=== PATIENT | female | born 1930 | race Caucasian/White ===

== ENCOUNTER 2017-04-10 09:00 | Inpatient (IN) | payer MEDICARE ==
[2017-04-10 09:32] VITALS: BMI 29.1
--- NOTE | 2017-04-13 09:53 | HP ---
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 She underwent left total hip replac ement in July of this year with good results. She continues to have problems with her right hip andres pite rest, restriction of activities, lifestyle adjustments, and anti-inflammatory medications. Her pain is now interfering with day-to-day activities. PAST MEDICAL HISTORY: Please see the old chart. The patient has history of atherosclerotic cardiova scular disease, previous stent placement, aortic valve replacement, and atrial fibrillation. She has been on anticoagulation in the past. After cardioversion, she has only now on aspirin. She has bee n seen and cleared for surgery by Dr. Cody's office. CURRENT MEDICATIONS: Include, multivitamins, calcium, vitamin D, aspirin 81 mg, simvastatin, and met oprolol. ALLERGIES: She is allergic to BENADRYL and ZYRTEC. FAMILY HISTORY, SOCIAL HISTORY, AND REVIEW OF SYSTEMS: Otherwise unremarkable. PHYSICAL EXAMINATION: GENERAL: Reveals an elderly healthy white female, who appears to be younger than her stated age. HEENT: Unremarkable. NECK: Supple. CHEST: Clear. HEART: Regular rate and rhythm. ABDOMEN: Soft, nontender. PELVIC/RECTAL/BREAST: Exams are deferred. EXTREMITIES: Pertinent findings are related to the right hip. There is tenderness in the anterior r ight hip. There is decreased range of motion and groin pain with internal rotation of her right anta lgic gait. NEUROVASCULAR: Intact. LABORATORY AND X-RAY FINDINGS: X-rays of the right hip reveal severe degenerative arthritis with no joint space remaining. IMPRESSION: 1. Degenerative arthritis, right hip. 2. Status post left total hip replacement. 3. Hypertension. 4. Atherosclerotic cardiovascular disease. PLAN: Right total hip replacement. The nature of the surgery, length of recovery, and potential com plications such as infection, loss of motion, incomplete relief, neurovascular injury, thromboembolic phenomenon, leg length discrepancy, possible transfusion, and need for revision have been discussed in detail.
[2017-04-17] MEDS ORDERED: Tranexamic Acid 1,000 MG/100 ML BAG ONE ×2 (06:06→09:13)
[2017-04-17] MEDS ORDERED: CEFAZOLIN/Water 2 GM/20 ML SYRINGE ONE (06:06)
[2017-04-17] MEDS ORDERED: Vancomycin HCl 500 MG VIAL ONE (06:09)
[2017-04-17] MEDS ORDERED: Fentanyl 100 MCG/2 ML VIAL ONE (06:26)
[2017-04-17] MEDS ORDERED: Midazolam HCl 2 mg/2 ml Vial ONE (06:26)
[2017-04-17] MEDS ORDERED: Ropivacaine 0.5% HCl/PF (150 MG/30 ML VIAL) ONE (07:13)
[2017-04-17] MEDS ORDERED: Promethazine HCl 25 MG SUPP PR PRN (07:15)
[2017-04-17] MEDS ORDERED: Naloxone HCl 0.4 mg/ml Vial IV PRN (07:15)
[2017-04-17] MEDS ORDERED: Bupivacaine 0.25% 10 ML VIAL EPIDURAL PRN (07:15)
[2017-04-17] MEDS ORDERED: Naloxone HCl 0.4 mg/ml Vial IVP PRN (07:15)
[2017-04-17] MEDS ORDERED: traMADol HCl 50 MG TAB PO PRN ×4 (07:15→10:37)
[2017-04-17] MEDS ORDERED: Zolpidem Tartrate 5 MG TAB PO PRN ×2 (07:15→10:37)
[2017-04-17] MEDS ORDERED: Ondansetron HCl/PF 4 MG/2 ML Vial IVP PRN ×3 (07:15→10:37)
[2017-04-17] MEDS ORDERED: Promethazine HCl 25 MG/ML VIAL IM PRN ×2 (07:15→09:27)
[2017-04-17] MEDS ORDERED: Fentanyl/Bupivacaine 250 ML in Premix Bag 1 BAG EPIDURAL SCH (07:15)
[2017-04-17] MEDS ORDERED: Eucerin (Mineral Oil/Petrolatum,White) 30 gm Jar TOP PRN (07:15)
[2017-04-17] MEDS ORDERED: HYDROcodone/Acetaminophen 5/325 mg Tablet PO PRN (07:15)
[2017-04-17 08:18] LABS: Bilirubin Negative (Negative); Blood, Urine Moderate (Negative); Glucose, Urine (Dipstick) Negative (Negative); Ketone, Urine Negative (Negative); Nitrite Positive (Negative); Protein, Urine (Dipstick) 100 mg/dL (Neg-Trace); Urobilinogen 0.2 mg/dL (0.2-1.0)
[2017-04-17 08:23] LABS: Bacteria/HPF 4+ HPF (None Seen); Squamous Epithelial 0-3 HPF (0-3)
[2017-04-17 08:38] LABS: Hyaline Casts/LPF NONE SEEN LPF (0-3 Hyaline)
[2017-04-17] MEDS ORDERED: Tranexamic Acid 1,000 MG in Sodium Chloride 0.9% 100 ML IVPB SCH ×2 (09:15→10:37)
[2017-04-17] MEDS ORDERED: Promethazine HCl 25 MG/ML VIAL SLOW IVP PRN ×2 (09:27→10:37)
[2017-04-17] MEDS ORDERED: Fentanyl/Bupivacaine 250 ML EPIDURAL ONE (09:30)
--- NOTE | 2017-04-17 09:34 | OP ---
DATE OF PROCEDURE: 04/17/2017 SURGEON: Joseph Billy M.D. INTERNATIONAL RELATIONS PROFESSOR: Deshawn Palomo PA-C. ANESTHESIA: General plus epidural. PREOPERATIVE DIAGNOSIS: Degenerative arthritis, right hip. POSTOPERATIVE DIAGNOSIS: Degenerative arthritis, right hip. PROCEDURES: Right total hip replacement with uncemented Trident 54 mm PSL outer shell with X3 polyet hylene insert and uncemented Accolade femoral stem with #3 stem, 132 degree angle trunnion and 36 mm standard neck length metal head. NARRATIVE REPORT: After satisfactory anesthesia was induced in supine position, the patient was plac ed in lateral decubitus position and this position held with the hip position device. Sequential com pression device was used on the non-operative leg throughout the procedure. The patient was prepped and draped in the routine sterile fashion. The hip was approached through a lateral curvilinear inci derrell, centered over the greater trochanter and carried down to subcutaneous tissues and bleeding poin ts controlled with Bovie cautery. IT band and gluteal fascia were split in line with skin incision. Direct lateral approach to the hip joint was accomplished by dividing the anterior third of the glut eus medius minimus tendons with Bovie cautery and reflecting this as a single flap anteriorly and med ially along with the vastus lateralis. Anterior capsulectomy was performed. The hip dislocated ante riorly. There was marked degenerative arthritis of the hip with large areas of exposed bone. The fe moral neck was osteotomized with an oscillating saw using a trial prosthesis as a guide. The acetabu lum was exposed and cleaned of all soft tissue and debris and then reamed in sequence down to bleedin g subchondral bone to a total of 54 mm. It was felt that a 54 mm Trident PSL outer shell could be pl aced in a press fit fashion. The permanent component was then hammered into position. There was goo d fit and stability of the component. No significant osteophytes. The permanent X3 polyethylene agata er was then snapped into position and the proximal femur exposed. It was opened with a box osteotome and then rasped in sequence to accept a #3 Accolade femoral rasp. Trial reduction with 132 degree a ngle trunnion and the standard 36 mm standard neck length femoral head gave appropriate size, fit, an d stability. The hip was again dislocated anteriorly. The trial components were removed. The perma nent #3 Accolade femoral stem with 132 degree angle trunnion was then hammered in position. There wa s again good fit and stability of the component. The permanent 36 mm standard neck length metal head was then placed on the trunnion and the hip again reduced and found to be stable. The wound was photocopy operator iously irrigated with pulsatile lavage. The abductors were repaired with interrupted #2 Vicryl. The IT band and gluteal fascia were closed with interrupted #2 Vicryl and a running #2 Quill. Subcutane ous tissues were closed with running 0 Quill suture and the skin closed with running subcuticular 3-0 Monoderm and SurgiSeal skin adhesive. Sterile dressing was applied and the patient turned to the madrigal pine position and a pillow placed between her legs. Sequential compression device was applied to the operated leg and she was awakened and taken to recovery room in stable condition. There were no deuce arent intraoperative complications. The estimated blood loss was 200 mL.
[2017-04-17] MEDS ORDERED: Metoprolol Tartrate 25 MG TAB PO SCH ×2 (10:37→11:30)
[2017-04-17] MEDS ORDERED: Multivitamin W/ Minerals 1 TAB PO SCH ×2 (10:37→11:30)
[2017-04-17] MEDS ORDERED: Fentanyl 100 MCG/2 ML VIAL SLOW IVP PRN (10:37)
[2017-04-17] MEDS ORDERED: Ferrous Gluconate 324 MG TAB PO SCH ×2 (10:37→11:30)
[2017-04-17] MEDS ORDERED: Acetaminophen/Codeine 30-300mg Tablet PO PRN ×2 (10:37)
[2017-04-17] MEDS ORDERED: Acetaminophen 325 MG TAB PO PRN (10:37)
[2017-04-17] MEDS ORDERED: Senokot S 8.6-50 MG TAB PO SCH ×2 (10:37→11:30)
[2017-04-17] MEDS ORDERED: Aspirin 325 MG TAB PO SCH (10:37)
[2017-04-17] MEDS ORDERED: Amlodipine 5 MG TAB PO SCH ×2 (10:37→11:30)
[2017-04-17] MEDS: Sodium Chloride 0.9% 1,000 ML IV SCH ×3 (11:13→20:45)
[2017-04-17] MEDS ORDERED: cefTRIAXone\\ROCEPHIN 1 GM in Sodium Chloride 0.9% 100 ML IVPB SCH (11:15)
--- NOTE | 2017-04-17 11:19 | RAD ---
RIGHT HIP 2 VIEWS: DATE: 04/17/17. HISTORY: Evaluate hip following arthroplasty. FINDINGS: There is a total hip arthroplasty on the right. Postoperative gas is noted in the postoperative bed. No acute fracture or dislocation. No radiographic evidence of hardware failure. IMPRESSION: Findings consistent with recent right hip total hip arthroplasty. POS: FANY
[2017-04-17] MEDS: cefTRIAXone\\ROCEPHIN 1 GM, Syringe 0.4 ML in Sterile Water 9.6 ML SLOW IVP SCH (12:57)
[2017-04-17] MEDS: CEFAZOLIN/Water 2 GM/20 ML SYRINGE SLOW IVP SCH ×2 (14:04→21:00)
[2017-04-17] MEDS ORDERED: ePHEDrine/0.9% NaCl/PF SYRINGE 50 mg/10 ml ONE (16:13)
[2017-04-17] MEDS ORDERED: Glycopyrrolate 0.2 MG/ML 5 ML SYRINGE ONE (16:13)
[2017-04-17] MEDS ORDERED: Propofol 200 MG/20 ML VIAL ONE (16:13)
[2017-04-17] MEDS ORDERED: Ondansetron HCl/PF 4 MG/2 ML Vial ONE (16:13)
[2017-04-17] MEDS ORDERED: Vancomycin HCl 1 GM in Premix Bag 1 BAG IVPB SCH (18:00)
[2017-04-17] MEDS: Ferrous Gluconate 324 MG TAB PO SCH (20:43)
[2017-04-17] MEDS: Senokot S 8.6-50 MG TAB PO SCH (20:44)
[2017-04-17] MEDS: Atorvastatin Calcium 20 MG TAB PO SCH (20:44)
[2017-04-17] MEDS: Calcium Carbonate + Vit D 1 TAB PO SCH (20:44)
[2017-04-17] MEDS ORDERED: Simvastatin 40 MG TAB PO SCH (21:00)
--- NOTE | 2017-04-17 23:47 | CON ---
DATE OF CONSULTATION: 04/17/2017 DATE OF ADMISSION: 04/17/2017 REASON FOR ADMISSION: Right hip pain status post right hip replacement. REASON FOR CONSULTATION: Medical management. HISTORY OF PRESENT ILLNESS: This is an 87-year-old pleasant lady who was apparently in usual state o f health with degenerative arthritis of both hips unresponsive to conservative treatment, comes in to the hospital for getting her right hip replaced. She did well post-surgically and right now at the time of my interview complains of some dysuria. She denies any shortness of breath, chest pain, naus ea, vomiting. She says that the pain control is adequate and she does good with physical therapy as well. PAST MEDICAL HISTORY: Significant for coronary artery disease 2007, status post stent placement, aor tic valve replacement requiring anticoagulation, atrial fibrillation paroxysmal, history of shingles, history of hypertension, history of incontinence, detrusor instability, history of osteoarthritis, c ataracts, history of basal cell cancer of the right nose, SVT in the past. PAST SURGICAL HISTORY: Significant for a right eye cataract surgery, right breast lump surgery, appe ndectomy, cardiac ablation, heart surgical valve replacement, double bypass, left hip replacement in 07/2016. FAMILY HISTORY: Significant for father who at age 66 because of heart disease and mother a t age 93 because of heart disease. SOCIAL HISTORY: Denies smoking, drinking or use of recreational drugs. MEDICATIONS: Please see MAR. ALLERGIES: To BENADRYL, ZYRTEC. REVIEW OF SYSTEMS: Significant for no fever, no chills, no headache, no appetite, no hearing loss, a nd no latencies. No cough, no chest pain, no diarrhea, some dysuria, no polyuria, no memory or mood changes. No neck pain. PHYSICAL EXAMINATION: VITAL SIGNS: Blood pressure is 132/52, pulse is 16, patient's heart rate is 51. She is afebrile. GENERAL: Patient is lying in bed in no apparent distress. HEENT: Atraumatic and normocephalic. Pupils equal, round, react to light. Extraocular movements in tact. Mucous membranes moist. NECK: Supple. No JVD. CHEST: Breath sounds. There are no rales or rhonchi. HEART: S1, S2, no murmurs or gallops. ABDOMEN: Soft. EXTREMITIES: No cyanosis, clubbing or edema. Distal pulses present. NEUROLOGIC: Alert, awake, oriented. No cranial deficits. No sensorimotor deficits. LABORATORY DATA: Potassium is 4.4, creatinine is 1.3. Ejection fraction is normal. WBC count is 4. 4, creatinine is 11. ASSESSMENT AND PLAN: 1. Urinary tract infection. We will send urine cultures, empirically treat with Rocephin. Follow c ultures and optimize treatment. 2. Status post right total hip replacement. Continue PT, pain control and physical therapy, pain co ntrol, and placement as per primary, coronary artery disease status post coronary artery bypass graft ing, cleared by Dr. Cody for the surgery, is doing well. 3. Hyperlipidemia, stable. Sequential compression devices for deep venous thrombosis prophylaxis. I will work with Dr. Billy in further caring for the patient. Thanks very much for letting me participate in this patient's care. I will make recommendations as t he clinical course evolves.
[2017-04-18 04:46] LABS: #Eosinphils 0.1 thou/uL (0.0-0.7); #Lymphocytes 1.1 thou/uL (1.20-3.40); #Monocytes 0.4 thou/uL (0.11-0.59); #Neutrophils 3.5 thou/uL (1.40-6.50); %Basophils 0.6 % (0.0-1.0); %Eosinophils 2.4 % (0.0-10.0); %Lymphocytes 20.6 % (21.0-51.0); %Monocytes 8.1 % (0.0-10.0); Hematocrit 27.6 % (36.0-47.0); Mean Platelet Volume 7.6 fL (7.4-10.4); Mean Platelet Volume 7.8 fL (7.4-10.4); Red Blood Cell (RBC) Count 2.99 mill/uL (4.20-5.40); Red Blood Cell (RBC) Count 3.03 mill/uL (4.20-5.40); White Blood Cell (WBC) Count 4.9 thou/uL (4.8-10.8); White Blood Cell (WBC) Count 5.1 thou/uL (4.8-10.8)
[2017-04-18 05:03] LABS: Anion Gap 11 mmol/L (10-20); BUN (Urea Nitrogen) 22 mg/dL (9.8-20.1); BUN/Creatinine Ratio 15.71; Calc. Creatinine Clearance 35 mL/min (70-130); Calcium 8.1 mg/dL (7.8-10.44); Carbon Dioxide 26 mmol/L (23-31); Chloride 105 mmol/L (98-107); Estimated GFR-MDRD 36
[2017-04-18] MEDS: Senokot S 8.6-50 MG TAB PO SCH ×2 (07:51→20:36)
[2017-04-18] MEDS: Ferrous Gluconate 324 MG TAB PO SCH ×2 (07:51→20:36)
[2017-04-18] MEDS: Metoprolol Tartrate 25 MG TAB PO SCH (07:52)
[2017-04-18] MEDS: Multivitamin W/ Minerals 1 TAB PO SCH (07:52)
[2017-04-18] MEDS: Amlodipine 5 MG TAB PO SCH (07:52)
[2017-04-18] MEDS: cefTRIAXone\\ROCEPHIN 1 GM, Syringe 0.4 ML in Sterile Water 9.6 ML SLOW IVP SCH (12:34)
[2017-04-18] MEDS: Sodium Chloride 0.9% 1,000 ML IV SCH (20:11)
[2017-04-18] MEDS: Atorvastatin Calcium 20 MG TAB PO SCH (20:35)
[2017-04-18] MEDS: Calcium Carbonate + Vit D 1 TAB PO SCH (20:36)
--- NOTE | 2017-04-18 23:29 | PDOC.PN ---
- Subjective Encounter Start Date: 04/18/17 Encounter Start Time: 13:00 Patient seen and examined. No new complaints. No overnight events - Objective MAR Reviewed: Yes Vital Signs & Weight: Vital Signs (12 hours) Temp Pulse Resp BP Pulse Ox 04/18/17 20:19 98.6 F 73 18 93/57 L 93 L 04/18/17 20:00 98.6 F 73 18 93 L 04/18/17 16:00 102.0 F H 84 14 118/63 88 L 04/18/17 12:00 99.3 F 66 14 104/55 L 97 Weight Admit Weight 175 lb Weight 175 lb I&O: 04/17/17 04/18/17 04/19/17 06:59 06:59 06:59 Intake Total 2252 210 Output Total 800 Balance 1452 210 Result Diagrams: 04/19/17 04:49 04/18/17 04:09 Phys Exam - Physical Examination Constitutional: NAD Respiratory: no wheezing, no rhonchi Cardiovascular: RRR, no rub Gastrointestinal: soft, non-tender, positive bowel sounds Musculoskeletal: no edema Neurological: moves all 4 limbs Dx/Plan - Plan DVT proph w/SCDs IMPRESSION 1. Urinary tract infection due to Proteus - On Ceftriaxone 2. Paroxysmal A-fib s/p Watchman device. Not a candidate for anticoag 3. CAD (coronary artery disease) 4. HTN (hypertension) 5. Urinary incontinence - follows Dr Mckay PLAN: * Cont IV Atbx * Await Urine C/S * Cont other meds as below * Cont to monitor. will follow Review of Systems - Review of Systems Respiratory: negative: Cough, Dry, Shortness of Breath, Hemoptysis, SOB with Excertion, Pleuritic Pain, Sputum, Wheezing Cardiovascular: negative: Chest Pain, Palpitations, Orthopnea, Paroxysmal Noc. Dyspnea, Edema, Light Headedness Gastrointestinal: negative: Nausea, Vomiting, Abdominal Pain, Diarrhea, Constipation, Melena, Hematochezia - Medications/Allergies Allergies/Adverse Reactions: Allergies Allergy/AdvReac Type Severity Reaction Status Date / Time diphenhydramine HCl Allergy Severe HALLUCINATI Verified 04/10/17 09:32 [From Benadryl] ONS Medications: Current Medications Acetaminophen (Tylenol) 650 mg PO Q4H PRN PRN Reason: MEJIA/ T > 101F; Mild Pain (1-3) Last Admin: 04/18/17 17:47 Dose: 650 mg Hydrocodone Bitart/Acetaminophen ([place] 5/325) 1 tab PO Q4H PRN PRN Reason: Mild Pain 0-3 Hydrocodone Bitart/Acetaminophen ([place] 5/325) 2 tab PO Q4H PRN PRN Reason: For Moderate Pain 4-6 Amlodipine Besylate (Norvasc) 5 mg PO DAILY [facility] Last Admin: 04/18/17 07:52 Dose: Not Given Aspirin (Aspirin Chewable) 81 mg PO BID [facility] Last Admin: 04/18/17 20:35 Dose: 81 mg Atorvastatin Calcium (Lipitor) 20 mg PO HS [facility] Last Admin: 04/18/17 20:35 Dose: 20 mg Calcium/Vitamin D (Caltrate 600 + Vit D) 1 tab PO QPM [facility] Last Admin: 04/18/17 20:36 Dose: 1 tab Ferrous Gluconate (Fergon) 324 mg PO BID [facility] Last Admin: 04/18/17 20:36 Dose: 324 mg Fentanyl Citrate 250 ml/ (Device) 250 mls @ 0 mls/hr EPIDURAL INF [facility] Sodium Chloride (Normal Saline 0.9%) 1,000 mls @ 100 mls/hr IV .Q10H [facility] Last Admin: 04/18/17 20:11 Dose: Not Given Ceftriaxone Sodium 1 gm/ (Syringe 0.4 ml/ Sterile Water) 10 mls @ 120 mls/hr SLOW IVP 1200 [facility] Stop: 04/20/17 12:04 Last Admin: 04/18/17 12:34 Dose: 10 mls Iron/Minerals/Multivitamins (Theragran M) 1 tab PO DAILY [facility] Last Admin: 04/18/17 07:52 Dose: 1 tab Metoprolol Tartrate (Lopressor) 25 mg PO QAM [facility] Last Admin: 04/18/17 07:52 Dose: Not Given Mineral Oil/White Petrolatum (Eucerin Cream) 0 gm TOP PRN PRN PRN Reason: Itching Naloxone HCl (Narcan) 0.2 mg IV Q5MIN PRN PRN Reason: RR <=8 OR OBTUNDED/UNAROUSABLE Naloxone HCl (Narcan) 0.1 mg IVP Q15MIN PRN PRN Reason: URINARY RETENTION Ondansetron HCl (Zofran) 4 mg IVP Q6H PRN PRN Reason: Nausea/Vomiting Promethazine HCl (Phenergan) 12.5 mg IM Q4H PRN PRN Reason: Nausea Promethazine HCl (Phenergan Suppository) 25 mg LA Q4H PRN PRN Reason: Nausea/Vomiting Promethazine HCl (Phenergan) 12.5 mg SLOW IVP Q4H PRN PRN Reason: Nausea/Vomiting Senna/Docusate Sodium (Senokot S) 2 tab PO BID [facility] Last Admin: 04/18/17 20:36 Dose: 2 tab Sodium Chloride (Flush - Normal Saline) 10 ml IVF Q12HR [facility] Last Admin: 04/18/17 20:36 Dose: 10 ml Sodium Chloride (Flush - Normal Saline) 10 ml IVF PRN PRN PRN Reason: Saline Flush Tramadol HCl (Ultram) 50 mg PO Q6H PRN PRN Reason: Mild Pain 1-3 Last Admin: 04/17/17 13:02 Dose: 50 mg Tramadol HCl (Ultram) 100 mg PO Q6H PRN PRN Reason: Moderate Pain 4-6 Zolpidem Tartrate (Ambien) 5 mg PO HSPRN PRN PRN Reason: Insomnia
[2017-04-19] MEDS: Sodium Chloride 0.9% 1,000 ML IV SCH ×2 (01:52→13:06)
[2017-04-19 05:34] LABS: Hematocrit 27.4 % (36.0-47.0); Mean Platelet Volume 7.9 fL (7.4-10.4); Red Blood Cell (RBC) Count 2.94 mill/uL (4.20-5.40); White Blood Cell (WBC) Count 7.5 thou/uL (4.8-10.8)
[2017-04-19] MEDS: Senokot S 8.6-50 MG TAB PO SCH ×2 (08:29→20:22)
[2017-04-19] MEDS: Multivitamin W/ Minerals 1 TAB PO SCH (08:29)
[2017-04-19] MEDS: Amlodipine 5 MG TAB PO SCH (08:29)
[2017-04-19] MEDS: Ferrous Gluconate 324 MG TAB PO SCH ×2 (08:29→20:23)
[2017-04-19] MEDS: Metoprolol Tartrate 25 MG TAB PO SCH (08:30)
[2017-04-19] MEDS: HYDROcodone/Acetaminophen 5/325 mg Tablet PO PRN ×2 (12:30→18:13)
[2017-04-19] MEDS: cefTRIAXone\\ROCEPHIN 1 GM, Syringe 0.4 ML in Sterile Water 9.6 ML SLOW IVP SCH (12:31)
--- NOTE | 2017-04-19 14:43 | PDOC.PN ---
- Subjective Encounter Start Date: 04/19/17 Encounter Start Time: 12:00 Patient seen and examined. No new complaints. No overnight events - Objective MAR Reviewed: Yes Vital Signs & Weight: Vital Signs (12 hours) Temp Pulse Resp BP BP Pulse Ox 04/19/17 11:15 98.7 F 66 12 108/59 L 90 L 04/19/17 08:44 97.5 F L 66 16 90 L 04/19/17 08:29 100/63 04/19/17 07:50 97.5 F L 66 16 100/63 90 L 04/19/17 04:09 98.9 F 62 16 107/65 93 L Weight Admit Weight 175 lb Weight 175 lb I&O: 04/18/17 04/19/17 04/20/17 06:59 06:59 06:59 Intake Total 2252 690 Output Total 800 400 Balance 1452 290 Result Diagrams: 04/19/17 04:49 04/18/17 04:09 Phys Exam - Physical Examination Constitutional: NAD Respiratory: no wheezing, no rhonchi Cardiovascular: RRR, no rub Gastrointestinal: soft, non-tender, positive bowel sounds Musculoskeletal: no edema Neurological: moves all 4 limbs Dx/Plan - Plan DVT proph w/SCDs IMPRESSION 1. Urinary tract infection due to Proteus - sensitive to Cipro, Resistant to Macrobid. 2. Paroxysmal A-fib s/p Watchman device. Not a candidate for anticoag 3. CAD (coronary artery disease) - on ASA 4. HTN (hypertension) - controlled 5. Urinary incontinence - follows Dr Mckay PLAN: * Change Atbx to Cipro - scripts sent to Pharmacy * Follow up with Dr Mckay * Patient being discharged today Review of Systems - Review of Systems Respiratory: negative: Cough, Dry, Shortness of Breath, Hemoptysis, SOB with Excertion, Pleuritic Pain, Sputum, Wheezing Cardiovascular: negative: Chest Pain, Palpitations, Orthopnea, Paroxysmal Noc. Dyspnea, Edema, Light Headedness - Medications/Allergies Allergies/Adverse Reactions: Allergies Allergy/AdvReac Type Severity Reaction Status Date / Time diphenhydramine HCl Allergy Severe HALLUCINATI Verified 04/10/17 09:32 [From Benadryl] ONS Medications: Current Medications Acetaminophen (Tylenol) 650 mg PO Q4H PRN PRN Reason: MEJIA/ T > 101F; Mild Pain (1-3) Last Admin: 04/18/17 17:47 Dose: 650 mg Hydrocodone Bitart/Acetaminophen ([place] 5/325) 1 tab PO Q4H PRN PRN Reason: Mild Pain 0-3 Hydrocodone Bitart/Acetaminophen ([place] 5/325) 2 tab PO Q4H PRN PRN Reason: For Moderate Pain 4-6 Last Admin: 04/19/17 12:30 Dose: 2 tab Amlodipine Besylate (Norvasc) 5 mg PO DAILY [facility] Last Admin: 04/19/17 08:29 Dose: Not Given Aspirin (Aspirin Chewable) 81 mg PO BID [facility] Last Admin: 04/19/17 08:29 Dose: 81 mg Atorvastatin Calcium (Lipitor) 20 mg PO HS [facility] Last Admin: 04/18/17 20:35 Dose: 20 mg Calcium/Vitamin D (Caltrate 600 + Vit D) 1 tab PO QPM [facility] Last Admin: 04/18/17 20:36 Dose: 1 tab Ferrous Gluconate (Fergon) 324 mg PO BID [facility] Last Admin: 04/19/17 08:29 Dose: 324 mg Sodium Chloride (Normal Saline 0.9%) 1,000 mls @ 100 mls/hr IV .Q10H [facility] Last Admin: 04/19/17 13:06 Dose: Not Given Ceftriaxone Sodium 1 gm/ (Syringe 0.4 ml/ Sterile Water) 10 mls @ 120 mls/hr SLOW IVP 1200 [facility] Stop: 04/20/17 12:04 Last Admin: 04/19/17 12:31 Dose: 10 mls Iron/Minerals/Multivitamins (Theragran M) 1 tab PO DAILY [facility] Last Admin: 04/19/17 08:29 Dose: 1 tab Metoprolol Tartrate (Lopressor) 25 mg PO QAM [facility] Last Admin: 04/19/17 08:30 Dose: Not Given Mineral Oil/White Petrolatum (Eucerin Cream) 0 gm TOP PRN PRN PRN Reason: Itching Naloxone HCl (Narcan) 0.2 mg IV Q5MIN PRN PRN Reason: RR <=8 OR OBTUNDED/UNAROUSABLE Naloxone HCl (Narcan) 0.1 mg IVP Q15MIN PRN PRN Reason: URINARY RETENTION Ondansetron HCl (Zofran) 4 mg IVP Q6H PRN PRN Reason: Nausea/Vomiting Promethazine HCl (Phenergan) 12.5 mg IM Q4H PRN PRN Reason: Nausea Promethazine HCl (Phenergan Suppository) 25 mg [place] Q4H PRN PRN Reason: Nausea/Vomiting Promethazine HCl (Phenergan) 12.5 mg SLOW IVP Q4H PRN PRN Reason: Nausea/Vomiting Senna/Docusate Sodium (Senokot S) 2 tab PO BID [facility] Last Admin: 04/19/17 08:29 Dose: 2 tab Sodium Chloride (Flush - Normal Saline) 10 ml IVF Q12HR [facility] Last Admin: 04/19/17 08:31 Dose: 10 ml Sodium Chloride (Flush - Normal Saline) 10 ml IVF PRN PRN PRN Reason: Saline Flush Tramadol HCl (Ultram) 50 mg PO Q6H PRN PRN Reason: Mild Pain 1-3 Last Admin: 04/17/17 13:02 Dose: 50 mg Tramadol HCl (Ultram) 100 mg PO Q6H PRN PRN Reason: Moderate Pain 4-6 Zolpidem Tartrate (Ambien) 5 mg PO HSPRN PRN PRN Reason: Insomnia
--- NOTE | 2017-04-19 19:29 | PDOC.EVN ---
Event Note - Event Note Event Note: Patient unable to void. Post void around [address] Mckay in AM. Straight Cath PRN. Start PO Cipro (No IV access).
[2017-04-19] MEDS: Cipro 250 MG TAB PO SCH (20:22)
[2017-04-19] MEDS: Atorvastatin Calcium 20 MG TAB PO SCH (20:22)
[2017-04-19] MEDS: Calcium Carbonate + Vit D 1 TAB PO SCH (20:23)
[2017-04-20 05:21] LABS: #Eosinphils 0.3 thou/uL (0.0-0.7); #Lymphocytes 0.9 thou/uL (1.20-3.40); #Monocytes 0.4 thou/uL (0.11-0.59); #Neutrophils 5.1 thou/uL (1.40-6.50); %Basophils 0.1 % (0.0-1.0); %Eosinophils 4.6 % (0.0-10.0); %Lymphocytes 13.5 % (21.0-51.0); %Monocytes 5.8 % (0.0-10.0); Hematocrit 27.9 % (36.0-47.0); Hematocrit 28.2 % (36.0-47.0); Mean Platelet Volume 7.7 fL (7.4-10.4); Mean Platelet Volume 7.8 fL (7.4-10.4); Red Blood Cell (RBC) Count 3.03 mill/uL (4.20-5.40); Red Blood Cell (RBC) Count 3.07 mill/uL (4.20-5.40); White Blood Cell (WBC) Count 6.7 thou/uL (4.8-10.8)
[2017-04-20] MEDS: HYDROcodone/Acetaminophen 5/325 mg Tablet PO PRN (05:41)
[2017-04-20] MEDS: Cipro 250 MG TAB PO SCH (05:41)
[2017-04-20 05:57] LABS: Anion Gap 11 mmol/L (10-20); BUN (Urea Nitrogen) 24 mg/dL (9.8-20.1); Calc. Creatinine Clearance 39 mL/min (70-130); Calcium 8.7 mg/dL (7.8-10.44); Carbon Dioxide 24 mmol/L (23-31); Chloride 104 mmol/L (98-107); Estimated GFR-MDRD 39; Magnesium 1.6 mg/dL (1.6-2.6); Phosphorus 3.1 mg/dL (2.3-4.7)
[2017-04-20] MEDS: Ferrous Gluconate 324 MG TAB PO SCH (10:08)
[2017-04-20] MEDS: Senokot S 8.6-50 MG TAB PO SCH (10:09)
[2017-04-20] MEDS: Metoprolol Tartrate 25 MG TAB PO SCH (10:09)
[2017-04-20] MEDS: Multivitamin W/ Minerals 1 TAB PO SCH (10:09)
[2017-04-20] MEDS: Amlodipine 5 MG TAB PO SCH (10:10)
[2017-04-20] MEDS ORDERED: Bisacodyl 10 MG SUPP PR SCH (11:00)
[2017-04-20] MEDS ORDERED: Polyethylene Glycol 3350 17 GM Packet PO SCH (11:00)
[2017-04-20 12:21] VITALS: BP 115/70; TEMP 98.2
[2017-04-20] MEDS: cefTRIAXone\\ROCEPHIN 1 GM, Syringe 0.4 ML in Sterile Water 9.6 ML SLOW IVP SCH (14:24)
--- NOTE | 2017-04-20 14:53 | PDOC.PN ---
- Subjective Encounter Start Date: 04/20/17 Encounter Start Time: 10:00 Patient seen and examined. Urinary retention +. No BM since admission. No overnight events. - Objective MAR Reviewed: Yes Vital Signs & Weight: Vital Signs (12 hours) Temp Pulse Resp BP BP Pulse Ox 04/20/17 12:20 98.2 F 60 14 115/70 90 L 04/20/17 10:10 60 129/52 L 04/20/17 08:14 98.1 F 61 16 129/52 L 16 L 04/20/17 08:00 98.1 F 60 16 93 L 04/20/17 04:36 98.3 F 62 17 108/51 L 96 Weight Admit Weight 175 lb Weight 175 lb I&O: 04/19/17 04/20/17 04/21/17 06:59 06:59 06:59 Intake Total 690 480 Output Total 400 2000 Balance 290 -1520 Result Diagrams: 04/20/17 04:44 04/20/17 04:44 Phys Exam - Physical Examination Constitutional: NAD Respiratory: no wheezing, no rhonchi Cardiovascular: RRR, no rub Gastrointestinal: soft, non-tender, positive bowel sounds Musculoskeletal: no edema Neurological: moves all 4 limbs Dx/Plan - Plan cont current plan of care, DVT proph w/SCDs IMPRESSION 1. Urinary tract infection due to Proteus - sensitive to Cipro, Resistant to Macrobid. Urinary retention is prob due to constipation 2. Paroxysmal A-fib s/p Watchman device. Not a candidate for anticoag 3. CAD (coronary artery disease) - on ASA 4. HTN (hypertension) - controlled 5. Urinary incontinence - follows Dr Mckay PLAN: * Treat constipation * Cont Cipro - scripts sent to Pharmacy * Follow up with Dr Mckay as outpt . Review of Systems - Review of Systems Constitutional: negative: Fever, Chills, Sweats, Weakness, Malaise Respiratory: negative: Cough, Dry, Shortness of Breath, Hemoptysis, SOB with Excertion, Pleuritic Pain, Sputum, Wheezing Cardiovascular: negative: Chest Pain, Palpitations, Orthopnea, Paroxysmal Noc. Dyspnea, Edema, Light Headedness - Medications/Allergies Allergies/Adverse Reactions: Allergies Allergy/AdvReac Type Severity Reaction Status Date / Time diphenhydramine HCl Allergy Severe HALLUCINATI Verified 04/10/17 09:32 [From [place]] ONS
[2017-04-21] MEDS ORDERED: Polyethylene Glycol 3350 17 GM Packet PO SCH (09:00)
== END 2017-04-20 14:21 | disposition home health service (06) | DRG 470 ==
LOC: SJJU 04-17 05:31
PROVIDERS: ADMIT Orthopaedic Surgery; ATTEND Orthopaedic Surgery
PROC: 0SR902A Replacement of Right Hip Joint with Metal on Polyethylene Synthetic Substitute, Uncemented, Open Approach (ICD-10-PCS; principal; 2017-04-17)
PROC: 3E0T3BZ Introduction of Anesthetic Agent into Peripheral Nerves and Plexi, Percutaneous Approach (ICD-10-PCS; 2017-04-17)
DX: M16.11 Unilateral primary osteoarthritis, right hip (principal); I48.0 Paroxysmal atrial fibrillation; N39.0 Urinary tract infection, site not specified; I08.1 Rheumatic disorders of both mitral and tricuspid valves; Z96.642 Presence of left artificial hip joint; I25.10 Atherosclerotic heart disease of native coronary artery without angina pectoris; Z95.5 Presence of coronary angioplasty implant and graft; Z95.2 Presence of prosthetic heart valve; Z79.82 Long term (current) use of aspirin; Z88.8 Allergy status to other drugs, medicaments and biological substances; Z85.22 Personal history of malignant neoplasm of nasal cavities, middle ear, and accessory sinuses; Z95.1 Presence of aortocoronary bypass graft; E78.5 Hyperlipidemia, unspecified; B96.4 Proteus (mirabilis) (morganii) as the cause of diseases classified elsewhere; R33.9 Retention of urine, unspecified; K59.00 Constipation, unspecified; R32 Unspecified urinary incontinence; I12.9 Hypertensive chronic kidney disease with stage 1 through stage 4 chronic kidney disease, or unspecified chronic kidney disease; N18.9 Chronic kidney disease, unspecified
CPT/HCPCS: 36415; 80069; 81001; 83735; 85027; 87077; 87086; 87186; A4216; C1776; G8978-GP-CK; G8979-GP-CJ; G8987-GO-CK; G8988-GO-CI; J0696; J2250; J2405; J2704; J2795; J3010; J3370

== ENCOUNTER 2017-04-10 09:29 | Outpatient (CLI) | payer MEDICARE ==
[2017-04-10 11:25] LABS: Hematocrit 34.8 % (36.0-47.0); Mean Platelet Volume 7.6 fL (7.4-10.4); Prothrombin Time 13.5 SEC (12.0-14.7); Red Blood Cell (RBC) Count 3.78 mill/uL (4.20-5.40); White Blood Cell (WBC) Count 4.4 thou/uL (4.8-10.8)
[2017-04-10 11:41] LABS: Anion Gap 12 mmol/L (10-20); BUN (Urea Nitrogen) 39 mg/dL (9.8-20.1); Calc. Creatinine Clearance 0 mL/min (70-130); Calcium 9.4 mg/dL (7.8-10.44); Carbon Dioxide 25 mmol/L (23-31); Chloride 108 mmol/L (98-107); Estimated GFR-MDRD 38
== END 2017-04-10 09:30 | disposition home or self-care (01) ==
LOC: LABBT 09:29
PROVIDERS: ATTEND Orthopaedic Surgery
DX: Z01.818 Encounter for other preprocedural examination (principal); M16.11 Unilateral primary osteoarthritis, right hip
CPT/HCPCS: 80048; 85027; 85610; 86850; 86900; 86901; 87081; 93005; 93010

== ENCOUNTER 2017-04-23 16:07 | Observation (INO) | payer MEDICARE ==
[2017-04-23 17:09] LABS: #Eosinphils 0.2 thou/uL (0.0-0.7); #Lymphocytes 0.9 thou/uL (1.20-3.40); #Monocytes 0.4 thou/uL (0.11-0.59); #Neutrophils 3.2 thou/uL (1.40-6.50); %Basophils 0.4 % (0.0-1.0); %Eosinophils 5.1 % (0.0-10.0); %Lymphocytes 18.7 % (21.0-51.0); %Monocytes 8.3 % (0.0-10.0); Hematocrit 28.5 % (36.0-47.0); Red Blood Cell (RBC) Count 3.09 mill/uL (4.20-5.40); White Blood Cell (WBC) Count 4.8 thou/uL (4.8-10.8)
[2017-04-23 17:15] LABS: Prothrombin Time 14.6 SEC (12.0-14.7)
[2017-04-23 17:16] LABS: PTT 31.2 SEC (22.9-36.1)
[2017-04-23 17:30] LABS: ALT (SGPT) 19 U/L (8-55); AST (SGOT) 27 U/L (5-34); Alkaline Phosphatase 67 U/L (40-150); Anion Gap 13 mmol/L (10-20); BUN (Urea Nitrogen) 31 mg/dL (9.8-20.1); Calc. Creatinine Clearance 0 mL/min (70-130); Calcium 9.2 mg/dL (7.8-10.44); Carbon Dioxide 25 mmol/L (23-31); Chloride 106 mmol/L (98-107); Estimated GFR-MDRD 36; Globulin 3.5 g/dL (2.4-3.5); Protein, Total 7.1 g/dL (6.0-8.3)
[2017-04-23] MEDS ORDERED: Pantoprazole 80 MG, Admixture Fee 1 EACH in Sodium Chloride 0.9% 100 ML IVP SCH (20:00)
[2017-04-23] MEDS: Sodium Chloride 0.9% 1,000 ML IV SCH ×2 (20:00→21:40)
[2017-04-23] MEDS ORDERED: Acetaminophen 650 MG Suppository PR PRN (20:06)
[2017-04-23] MEDS ORDERED: Acetaminophen 325 MG TAB PO PRN (20:06)
[2017-04-23] MEDS ORDERED: Pantoprazole 80 MG in Sodium Chloride 0.9% 100 ML IVP SCH (20:15)
[2017-04-23 20:24] LABS: Hematocrit 25.2 % (36.0-47.0)
--- NOTE | 2017-04-23 21:14 | HP ---
PRIMARY CARE PHYSICIAN: Maco Ramey M.D. CHIEF COMPLAINT: Black stools. HISTORY OF PRESENT ILLNESS: Ms. Vang is a pleasant 87-year-old lady who was seen at [facility] on 04/23/2017. She reports that she has a history of GI bleed, because of which she is off of anticoagulation. She reports that she has been on aspirin 81 mg for at least the last 2 years. She underwent right to dinora hip replacement on 04/17/2017. She reports that she was doing well at home. She has been ambula ting with her walker. Three days ago, she developed black stools. She denies any abdominal pain. S he reports having 2-3 black stools a day. She denies any lightheadedness or chest pain. She denies any fevers or chills. She waited until today. When the black stools did not improve, [facility]. She denies any nausea or vomiting. REVIEW OF SYSTEMS: The following complete review of systems was negative, unless otherwise mentioned in the HPI or below: Constitutional: Weight loss or gain, sense of well-being, ability to conduct usual activities, exerc ise tolerance. Skin/Breast: Rash, itching, changes in hair growth or loss, nail changes, breast lumps, tenderness, swelling, nipple discharge. Eyes: Vision, double vision, tearing, blind spots, pain. ENT/Mouth: Headaches (location, time of onset, duration, precipitating factors), vertigo, lightheade dness, injury. Vision, double vision, tearing, blind spots, pain, nose bleeding, colds, obstruction, discharge, dental difficulties, gingival bleeding, dentures, neck stiffness, pain, tenderness, masses in thyroid or other areas. Cardiovascular: Precordial pain, substernal distress, palpitations, syncope, dyspnea on exertion, or thopnea, nocturnal paroxysmal dyspnea, edema, cyanosis, hypertension, heart murmurs, varicosities, ph lebitis, claudication. Respiratory: Pain, shortness of breath, wheezing, stridor, cough, hemoptysis, fever or night sweats. Gastrointestinal: Poor appetite, dysphagia, indigestion, abdominal pain, heartburn, eructation, naus ea, vomiting, hematemesis, jaundice, constipation, or diarrhea, abnormal stools (immanuel-colored, tarry, bloody, greasy, foul smelling), flatulence, hemorrhoids, recent changes in bowel habits. Genitourinary: Urgency, frequency, dysuria, nocturia, hematuria, polyuria, oliguria, unusual (or alondra nge in) color of urine, stones, hesitancy, change in size of stream, dribbling, acute retention or in continence, libido, potency. Musculoskeletal: Pain, swelling, redness or heat of muscles or joints, limitation, of motion, muscul ar weakness, atrophy, cramps. Neurologic/Psychiatric: Convulsions, paralyses, tremor, incoordination, paresthesias, difficulties w ith memory of speech, sensory or motor disturbances, or muscular coordination (ataxia, tremor), emoti onal problems, anxiety, depression, previous psychiatric care, unusual perceptions, hallucinations. Allergy/Immunologic: Skin rash, anemia, bleeding tendency, polydipsia, polyuria, intolerance to heat or cold. PAST MEDICAL HISTORY: Significant for coronary artery disease, status post coronary artery bypass gr aft, status post aortic valve replacement; dyslipidemia; GI bleed; atrial fibrillation, status post c ardioversion. 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 SOCIAL HISTORY: The patient denies tobacco use, alcohol use or recreational drug use. FAMILY HISTORY: Significant for coronary artery disease in both parents. CODE STATUS: I discussed her code status. She is DNR. ALLERGIES: DIPHENHYDRAMINE. CURRENT MEDICATIONS: These include simvastatin 40 mg daily, aspirin 81 mg daily, calcium 600 mg jack y, Toprol-XL 25 mg 2 times a day, amlodipine 5 mg daily, [place] p.r.n., and [place] 1 tablet daily. PHYSICAL EXAMINATION: GENERAL: On examination, Ms. Vang is awake and alert, not in acute distress. VITAL SIGNS: Blood pressure is 140/55, pulse is 60, she is breathing at rate of 18, and saturating 9 6% on room air. She is afebrile. EYES: Conjunctival pallor present. No scleral icterus. ENT: Moist mucosal membranes, no oropharyngeal erythema or exudates. NECK: Supple, nontender, normal range of movement. Trachea is midline. RESPIRATORY: Accessory muscles of breathing are not active. Chest wall movements are symmetric bila terally. Lungs are clear to auscultation without wheeze, rhonchi or crepitations. CARDIOVASCULAR: S1 and S2 are heard, regular. Peripheral pulses are palpable. No carotid bruit, no pericardial rub. ABDOMEN: Soft, nontender, bowel sounds heard, no hepatomegaly, no splenomegaly. NEUROLOGIC: Cranial nerves II-XII are intact. Deep tendon reflexes are 2+. MUSCULOSKELETAL: Power is 5/5 in all 4 extremities. She has a dressing over her right hip. SKIN: No rashes or subcutaneous nodules. LYMPHATIC: No cervical lymphadenopathy. PSYCHIATRIC: Normal mood, normal affect, the patient is oriented to person, place, and time. IMAGING AND LABORATORY DATA: Ms. Vang's labs and investigations were reviewed. She had an electr ocardiogram, which showed normal sinus rhythm with premature atrial complexes. Laboratory investigat ion showed normal white count, normocytic anemia with hemoglobin 9.5, normal platelet count, normal I NR, elevated blood urea nitrogen of 31, elevated creatinine of 1.40, last known creatinine 1.29 on and an unremarkable liver profile. Her last known hemoglobin was 9.3 on 04/20/2017. ASSESSMENT AND PLAN: Ms. Vang is a pleasant 87-year-old lady who was seen at [facility] on 04/23/2017. Her problem list includes: 1. Gastrointestinal bleed: Her presentation is concerning for upper gastrointestinal bleed. She wi ll be admitted to the hospital for further management. I will continue her on PPI drip. Her case wa s discussed by the emergency room physician with exhibition organiser radio station audio engineer. She will be assessed by Gastroenterology Service. We will hold aspirin. We will recheck hemoglobin. 2. Coronary artery disease: Appears stable. 3. Elevated blood urea nitrogen: Could be secondary to dehydration or could be secondary to upper g astrointestinal bleed. We will provide gentle hydration. We will recheck. 4. Hypertension: Monitor vital signs, titrate antihypertensives as needed. 5. Dyslipidemia: Stable. Many thanks for allowing me to participate in your patient's care. Please feel free to contact me wi th any questions or concerns. LEVEL OF RISK: Moderate. LEVEL OF COMPLEXITY: Moderate.
[2017-04-24 05:43] LABS: #Eosinphils 0.3 thou/uL (0.0-0.7); #Lymphocytes 0.9 thou/uL (1.20-3.40); #Monocytes 0.3 thou/uL (0.11-0.59); #Neutrophils 2.8 thou/uL (1.40-6.50); %Basophils 0.5 % (0.0-1.0); %Eosinophils 6.8 % (0.0-10.0); %Lymphocytes 19.7 % (21.0-51.0); %Monocytes 7.8 % (0.0-10.0); Mean Platelet Volume 7.5 fL (7.4-10.4); White Blood Cell (WBC) Count 4.3 thou/uL (4.8-10.8)
[2017-04-24 06:02] LABS: Anion Gap 10 mmol/L (10-20); BUN (Urea Nitrogen) 23 mg/dL (9.8-20.1); Calc. Creatinine Clearance 49 mL/min (70-130); Calcium 8.6 mg/dL (7.8-10.44); Carbon Dioxide 23 mmol/L (23-31); Chloride 113 mmol/L (98-107); Estimated GFR-MDRD 47
--- NOTE | 2017-04-24 14:11 | PDOC.PN ---
- Subjective Encounter Start Date: 04/24/17 Encounter Start Time: 10:00 Pt seen for followup re: GI bleed. Denies chest pain, shortness of breath, fevers or chills. Unsure re; black stools. - Objective Resuscitation Status: Resuscitation Status DNR:Do Not Resuscitate Vital Signs & Weight: Vital Signs (12 hours) Temp Pulse Resp BP Pulse Ox 04/24/17 12:57 98.1 F 73 20 143/71 H 91 L 04/24/17 12:00 98.1 F 82 18 128/81 94 L 04/24/17 11:46 98.1 F 82 18 128/81 94 L 04/24/17 08:00 98.1 F 82 18 128/81 94 L 04/24/17 04:00 98.1 F 58 L 16 124/67 93 L Weight Weight 189 lb 6 oz Result Diagrams: 04/24/17 05:13 04/24/17 05:13 EKG Reviewed by me: Yes Phys Exam - Physical Examination Constitutional: NAD HEENT: moist MMs Neck: supple Respiratory: clear to auscultation bilateral Cardiovascular: RRR Gastrointestinal: soft Neurological: moves all 4 limbs Psychiatric: normal affect Dx/Plan (1) GI bleed Code(s): K92.2 - GASTROINTESTINAL HEMORRHAGE, UNSPECIFIED Status: Acute (2) Afib Code(s): I48.91 - UNSPECIFIED ATRIAL FIBRILLATION Status: Chronic Qualifiers: Atrial fibrillation type: paroxysmal Qualified Code(s): I48.0 - Paroxysmal atrial fibrillation Comment: in sinus now, s/p Watchman device - not anticoag candidate (3) CAD (coronary artery disease) Code(s): I25.10 - ATHSCL HEART DISEASE OF [place] CORONARY ARTERY W/O ANG PCTRS Status: Chronic Comment: s/p CABG (4) Dyslipidemia Code(s): E78.5 - HYPERLIPIDEMIA, UNSPECIFIED Status: Chronic (5) HTN (hypertension) Code(s): I10 - ESSENTIAL (PRIMARY) HYPERTENSION Status: Chronic Qualifiers: Hypertension type: essential hypertension Qualified Code(s): I10 - Essential (primary) hypertension (6) Hx of aortic valve replacement Code(s): Z95.2 - PRESENCE OF PROSTHETIC HEART VALVE Status: Chronic - Plan DVT proph w/SCDs * . Continue PPi drip. Monitor hemoglobin. Await GI input. CAD stable. Hold aspirin. Review of Systems - Review of Systems Respiratory: negative: Cough, Dry, Shortness of Breath, Hemoptysis, SOB with Excertion, Pleuritic Pain, Sputum, Wheezing Cardiovascular: negative: Chest Pain, Palpitations, Orthopnea, Paroxysmal Noc. Dyspnea, Edema, Light Headedness - Medications/Allergies Allergies/Adverse Reactions: Allergies Allergy/AdvReac Type Severity Reaction Status Date / Time diphenhydramine HCl Allergy Severe HALLUCINATI Verified 04/24/17 01:31 [From [place]] ONS Medications: Current Medications Acetaminophen (Tylenol) 650 mg PO Q4H PRN PRN Reason: Headache/Fever or Pain Acetaminophen (Tylenol) [address] Q4H PRN PRN Reason: Headache/Fever or Pain Last Admin: 04/24/17 03:08 Dose: 650 mg Pantoprazole Sodium 80 mg/ (Sodium Chloride) 100 mls @ 10 mls/hr IVP INF ASHLEY Last Admin: 04/24/17 05:30 Dose: 100 mls Sodium Chloride (Normal Saline 0.9%) 1,000 mls @ 50 mls/hr IV .Q20H ASHLEY Last Admin: 04/23/17 21:40 Dose: 1,000 mls
[2017-04-24] MEDS ORDERED: Propofol 200 MG/20 ML VIAL ONE (15:51)
[2017-04-24] MEDS ORDERED: Ondansetron HCl/PF 4 MG/2 ML Vial IVP PRN (15:55)
[2017-04-24] MEDS ORDERED: Promethazine HCl 25 MG/ML VIAL SLOW IVP PRN (15:55)
[2017-04-24] MEDS ORDERED: Promethazine HCl 25 MG/ML VIAL IM PRN (15:55)
[2017-04-24] MEDS: Sodium Chloride 0.9% 1,000 ML IV SCH (17:56)
[2017-04-25 05:40] LABS: #Eosinphils 0.4 thou/uL (0.0-0.7); #Monocytes 0.4 thou/uL (0.11-0.59); #Neutrophils 3.9 thou/uL (1.40-6.50); %Basophils 0.3 % (0.0-1.0); %Eosinophils 6.8 % (0.0-10.0); %Lymphocytes 17.8 % (21.0-51.0); %Monocytes 6.7 % (0.0-10.0); Hematocrit 26.8 % (36.0-47.0); Mean Platelet Volume 6.9 fL (7.4-10.4); Red Blood Cell (RBC) Count 2.84 mill/uL (4.20-5.40); White Blood Cell (WBC) Count 5.7 thou/uL (4.8-10.8)
[2017-04-25 06:17] LABS: Anion Gap 12 mmol/L (10-20); BUN (Urea Nitrogen) 16 mg/dL (9.8-20.1); Calc. Creatinine Clearance 57 mL/min (70-130); Calcium 8.4 mg/dL (7.8-10.44); Carbon Dioxide 19 mmol/L (23-31); Chloride 113 mmol/L (98-107); Estimated GFR-MDRD 52
--- NOTE | 2017-04-25 06:19 | CON ---
DATE OF CONSULTATION: 04/24/2017 REASON FOR CONSULTATION: Reported melena. HISTORY OF PRESENT ILLNESS: Ms. Vang came to the hospital yesterday because she had black stool s tarting Monday and one each day Monday, Monday, and Monday. She reports she had a hip replacement exactly a week ago and was discharged home last the day before started bleeding on aspirin d aily. She came in because she had bleeding in the past and was pretty sure she was having bleeding a gain. She denies actually feeling bad. She denies any nausea or vomiting, hematemesis or hematochez ia, chest pain. Her hemoglobin when she left the hospital was 9.3, on readmission yesterday was 9.5, and is 8.3 today. She states she has had no bowel movements today. BUN and creatinine are 23 and 1 .01. These were in 39 and 1.3, and 22 and 1.4, and 24 and 1.21, on 04/10/2017, 04/18/2017, and 04/20, respectively. PAST MEDICAL HISTORY: Coronary artery disease, previous bypass, previous aortic valve replacement, d yslipidemia, atrial fibrillation, previous cardioversion, prior problems with anemia. PAST SURGICAL HISTORY: She underwent actual upper and lower endoscopies. On 11/30/2015, she had a f lat polyp in the ascending colon. There was an AVM in the colon; it was nonbleeding at that time. A flat polyp was removed by piece-meal polypectomy, which came back as an adenoma and pedunculated sig moid colon polyp at that time. She had a hip replacement last week. ALLERGIES: None known. HOME MEDICATIONS: Simvastatin, aspirin 81 mg b.i.d., calcium, Toprol, amlodipine, [place], and t ablets. SOCIAL HISTORY: Denies alcohol, drugs, or tobacco. PHYSICAL EXAMINATION: GENERAL: She is resting comfortably. VITAL SIGNS: Temperature is 98, pulse 73, blood pressure 143/71. LUNGS: Clear. HEART: Regular rate and rhythm without murmurs. ABDOMEN: Soft, nontender, without any palpable hepatosplenomegaly. EXTREMITIES: No clubbing, cyanosis, or edema. LABORATORY STUDIES: As per HPI. White count is 4.3, hemoglobin 8.3, platelet count is 139. INR is 1.1. Liver function tests normal. ASSESSMENT: 1. Melena and history of b.i.d. NSAID use which the patient was started last week after hip replacem ent for deep vein thrombosis prophylaxis. 2. 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 A normal EGD last year at that time. MEDICATIONS HERE: Tylenol, Protonix drip, and she continues acetaminophen. ASSESSMENT: Gastrointestinal bleed, melena, stable hemoglobin. It is really not any different than it has been before. She was admitted maybe a gram down, although she has received fluid since then. There is no evidence of elevated BUN, indicating massive upper gastrointestinal bleeding and she has had no bowel movement today or yesterday. RECOMMENDATIONS: EGD and proton pump inhibitors.
--- NOTE | 2017-04-25 07:09 | OP ---
PREOPERATIVE DIAGNOSES: 1. Reported melena, drop in hemoglobin from baseline around 9 to about 8. 2. History of chronic anemia in the past with colonoscopy with a large polyp removed from right colo n and cecal arteriovenous malformation noted, but it was not bleeding at that time. 3. Recent increase in NSAIDs for deep venous thrombosis prophylaxis after hip surgery last week. POSTOPERATIVE DIAGNOSES: 1. NSAID gastritis. 2. Multiple erosions in the antrum not actively bleeding. Biopsies obtained. 3. Otherwise, normal esophagogastroduodenoscopy. RECOMMENDATIONS: 1. Can resume aspirin 81 mg a day for DVT prophylaxis. 2. Physical therapy to get her up and around. 3. Stop IV Protonix drip and start 40 mg Protonix b.i.d. PROCEDURE IN DETAIL: After the patient was informed of the risks, benefits, possible complications o f endoscopy including perforation, bleeding, reactions to medication and aspiration, informed consent was obtained. The patient was brought to endoscopy suite where she was sedated in gradual fashion. Once she was comfortable, a bite block was placed in incisural orifice. The endoscope was advanced through the esophagus, stomach and second and third portion of duodenum. The esophagus was normal. The stomach was notable for multiple small punctate erosions in the antrum consistent with NSAID taylor ritis. Biopsies were obtained. The duodenum was normal. The bulb was normal to the third portions. No bleeding sites were identified. There was no fresh or old blood. There was no heme staining. Retroflexed views in the stomach were normal. The scope was removed. The patient tolerated the proc edure well with no complications.
[2017-04-25 09:38] VITALS: BP 145/55; TEMP 98.5
[2017-04-25] MEDS: Sodium Chloride 0.9% 1,000 ML IV SCH (12:24)
--- NOTE | 2017-04-25 13:35 | DIS ---
DATE OF ADMISSION: 04/23/2017 DATE OF DISCHARGE: 04/25/2017 PRIMARY CARE PHYSICIAN: Maco Ramey M.D. DISCHARGE DIAGNOSES: 1. Upper gastrointestinal bleed. 2. Nonsteroidal anti-inflammatory drug-induced gastritis. CONDITION OF PATIENT ON THE DAY OF DISCHARGE: Stable. I assessed Ms. Vang on the day of discharg e. She denies any chest pain or shortness of breath. Her vital signs are stable. S1 and S2 are hea rd, regular. Lungs are clear to auscultation bilaterally. DISCHARGE MEDICATIONS: Her home medications were resumed, as dictated on history and physical note f rom 04/23/2017. In addition, she has been started on Protonix 40 mg 2 times a day. She is advised t o continue aspirin given her recent hip surgery. CONSULTATIONS DURING THIS HOSPITALIZATION: Gastroenterology, Dr. Perez. HOSPITAL COURSE: Ms. Vang is a pleasant 87-year-old lady who was admitted to [facility] for melanotic stools. She was seen by Gastroenterology Service and underwent EGD on . She was found to have NSAID gastritis, multiple erosions in the antrum, not actively bleed ing. Biopsies were obtained. The EGD was otherwise normal. She has been started on b.i.d. Protonix . She is being discharged home in a stable condition. She is advised to follow up with Gastroentero logy Service and her primary care provider as outpatient. On the day of discharge, she has a white count of 5700, hemoglobin 8.8, platelet count 179,000, sodiu m 140, potassium 4.0, and creatinine 1.0. Many thanks for allowing me to participate in your patient's care. Please feel free to contact me wi th any questions or concerns. DISCHARGE DESTINATION: Home.
--- NOTE | 2017-05-13 10:43 | EKG ---
Test Reason : Blood Pressure : / mmHG Vent. Rate : 063 BPM Atrial Rate : 063 BPM P-R Int : 160 ms QRS Dur : 080 ms QT Int : 428 ms P-R-T Axes : 051 002 037 degrees QTc Int : 437 ms Sinus rhythm with Premature atrial complexes Otherwise normal ECG Confirmed by PIPE Hernandez, LILIANA ([id number]), photography editor MYRA CORNEJO ([id number]) on 05/13/2017 10:43:06 AM Referred By: Confirmed By:LILIANA BETANCUR M.D.
== END 2017-04-25 13:23 | disposition home or self-care (01) ==
LOC: ERS 16:07 → T4-B 19:00
PROVIDERS: ADMIT Internal Medicine; ATTEND Internal Medicine
PROC: 0DB78ZX Excision of Stomach, Pylorus, Via Natural or Artificial Opening Endoscopic, Diagnostic (ICD-10-PCS; principal; 2017-04-24)
DX: K29.50 Unspecified chronic gastritis without bleeding (principal); T39.395A Adverse effect of other nonsteroidal anti-inflammatory drugs [NSAID], initial encounter; B96.81 Helicobacter pylori [H. pylori] as the cause of diseases classified elsewhere; I25.10 Atherosclerotic heart disease of native coronary artery without angina pectoris; I48.91 Unspecified atrial fibrillation; E78.5 Hyperlipidemia, unspecified; M19.90 Unspecified osteoarthritis, unspecified site; Z96.641 Presence of right artificial hip joint; Z95.1 Presence of aortocoronary bypass graft; Z95.2 Presence of prosthetic heart valve; Z90.49 Acquired absence of other specified parts of digestive tract; Z98.890 Other specified postprocedural states; Z88.8 Allergy status to other drugs, medicaments and biological substances; Z79.82 Long term (current) use of aspirin; Z79.899 Other long term (current) drug therapy; Z86.010 Personal history of colon polyps; Z98.42 Cataract extraction status, left eye; Z98.41 Cataract extraction status, right eye; Z96.1 Presence of intraocular lens; Z66 Do not resuscitate
CPT/HCPCS: 43239; 80048 ×2; 80053; 82274; 85014; 85018; 85025 ×3; 85610; 85730; 86850; 86900; 86901; 88305; 88312; 93005; 96361 ×3; 96365; 96366 ×2; 97116; 97139; 99285; G0378; G8978; G8979; 36415; C9113; J2704; J7050

== ENCOUNTER 2018-02-26 08:35 | Outpatient (CLI) | payer MEDICARE ==
[2018-02-26 09:42] LABS: Bilirubin Negative (Negative); Blood, Urine Large (Negative); Clarity CLOUDY (Clear); Glucose, Urine (Dipstick) Negative (Negative); Leukocyte Large (Negative); Nitrite Positive (Negative); Protein, Urine (Dipstick) Trace mg/dL (Neg-Trace); Specific Gravity, Urine 1.013 (1.002-1.036); Urobilinogen 0.2 mg/dL (0.2-1.0); pH, Urine 5.5 (5.0-9.0)
[2018-02-26 09:43] LABS: RBC/HPF 21-50 HPF (0-3)
[2018-02-26 09:44] LABS: #Basophils 0.1 thou/uL (0.0-0.2); #Eosinphils 0.3 thou/uL (0.0-0.7); #Lymphocytes 1.1 thou/uL (1.20-3.40); #Monocytes 0.3 thou/uL (0.11-0.59); #Neutrophils 2.2 thou/uL (1.40-6.50); %Basophils 1.7 % (0.0-1.0); %Eosinophils 7.1 % (0.0-10.0); %Lymphocytes 28.2 % (21.0-51.0); %Monocytes 7.7 % (0.0-10.0); %Neutrophils 55.4 % (42.0-75.0); Hemoglobin 12.2 g/dL (12.0-16.0); Mean Corpuscular HGB CONC 33.9 g/dL (32.0-36.0); Mean Corpuscular Hemoglobin 30.4 pg (27.0-31.0); Mean Corpuscular Volume 89.7 fL (78.0-98.0); Mean Platelet Volume 7.9 fL (7.4-10.4); Platelet Count 76 thou/uL (130-400); RBC Distribution Width 12.2 % (11.5-14.5)
[2018-02-26 09:48] LABS: Pathc Cast-AUWi Flag 3.05 (0-2.49)
[2018-02-26 09:51] LABS: PTT 30.7 SEC (22.9-36.1); Prothrombin Time 13.3 SEC (12.0-14.7)
[2018-02-26 09:54] LABS: Bacteria/HPF 2+ HPF (None Seen); Hyaline Casts/LPF 0-3 HYALINE CAST LPF (0-3 Hyaline); Manual Microscopic Reviewed? No Path Casts Seen
[2018-02-26 10:02] LABS: Anion Gap 11 mmol/L (10-20); BUN (Urea Nitrogen) 27 mg/dL (9.8-20.1); Calc. Creatinine Clearance 0 mL/min (70-130); Calcium 9.4 mg/dL (7.8-10.44); Carbon Dioxide 25 mmol/L (23-31); Chloride 110 mmol/L (98-107); Estimated GFR-MDRD 39; Glucose 95 mg/dL (83-110); Potassium 4.5 mmol/L (3.5-5.1); Sodium 141 mmol/L (136-145)
== END 2018-02-26 08:36 | disposition home or self-care (01) ==
LOC: LABBT 08:35
PROVIDERS: ATTEND Urology
DX: Z01.818 Encounter for other preprocedural examination (principal); N32.9 Bladder disorder, unspecified; N39.0 Urinary tract infection, site not specified
CPT/HCPCS: 80048; 81001; 85025; 85610; 85730; 87077; 87086; 87186; 93005; 93010

== ENCOUNTER 2018-03-02 05:54 | Day surgery (SDC) | payer MEDICARE ==
[2018-02-26 08:53] VITALS: BMI 29.7
[2018-03-02] MEDS ORDERED: Fentanyl 100 MCG/2 ML VIAL ONE (06:40)
[2018-03-02] MEDS ORDERED: Levofloxacin 500 mg/D5W 100 ml Premix Bag ONE (07:10)
--- NOTE | 2018-03-02 09:23 | RAD ---
BILATERAL RETROGRADE UROGRAM: DATE: 03/02/2018. HISTORY: Frequent urinary tract infections over the last year and hematuria. FINDINGS: The left renal collecting system and left ureter have a normal appearance. No definitive persistent filling defect is appreciated. Right retrograde urogram demonstrates overall normal-caliber ureter, but there prominence of the right renal pelvis some of which could be related to an extrarenal pelvis . There is no persistent filling defect identified within the right ureter. There is a suggested ar ea of narrowing in the ureter at the level of the sacrum on the right, this is probably attributable to peristalsis. The residential worker image demonstrates bilateral total hip prosthesis with calcifications overlying the gallbla dder calculi. Multiple phleboliths overlie the pelvis and degenerative change is present in the spin e. IMPRESSION: 1. Normal left retrograde urogram without hydronephrosis or hydroureter. 2. Mild prominence of the right renal pelvis which could be related to prominence of an extrarenal p otilio. Prominence of the right renal pelvis does correlate with CT findings on 02/09/2018. 3. Correlation with intraoperative findings is recommended. 4. Cholelithiasis. POS: [place]
--- NOTE | 2018-03-02 11:14 | OP ---
DATE OF PROCEDURE: 03/02/2018 PREOPERATIVE DIAGNOSIS: Recurrent urinary tract infections. POSTOPERATIVE DIAGNOSES: Recurrent urinary tract infections. PROCEDURE PERFORMED: Cystoscopy, bilateral retrograde. SURGEON: Dr. Graham Mckay. ANESTHETIC: General. ESTIMATED BLOOD LOSS: Minimal. FINDINGS: She has no urethral stricture, stenosis, diverticulum or lesion. She had no evidence of b ladder fistula, tumor, foreign body, or stone. She had two ureteral orifices in normal position. Sh e had some mild erythema of the bladder, which was probably just secondary to urinary tract infection s. She had no persistent filling defects along either ureter. She had a mild right extrarenal pelvi s, but this area did not appear to be obstructed, urine seemed to pass into the ureter without any di fficulty and both ureters appeared to drain well. OPERATIVE INDICATIONS: This is an elderly white female who has had recurrent urinary tract infection s without any obvious source. It has been very difficult to keep her free of infections. She recent ly had a 3-phase CT that showed some right extrarenal pelvis. She had no good visualization of her u reters, because of bilateral hip replacement, so she is coming in now for cystoscopy and retrograde s tudies, possible bladder biopsy, possible TURBT. OPERATIVE TECHNIQUE: After obtaining IV Levaquin, she was taken to the operating suite. She was taylor fariba in supine position on the treatment table. PlexiPulses were placed on lower extremities and turn ed on. She was given a general anesthetic, oral obturator intubation. She was placed in the dorsal lithotomy position and sterilely prepped and draped. Cystoscopy was performed with a 22 [place] sheat h. The bladder was filled and emptied number of times and examined with both a 30 and the 70-degree lens with the findings above. A 5-[place] cone tip catheter was flushed with contrast, placed in the right ureteral orifice. Contrast was slowly injected in retrograde manner filling out the entire ure ter and upper collecting system and drainage films were taken. The left side was done the same way. We repeated the right side by moving the camera down to get the pelvis better, because of her cystoc pat to see the distal ureters better. This was done with the left side and then repeated just distal ly on the right side. At the end of the procedure, the bladder straining instruments were removed. She was awakened, she was extubated, she was taken by stretcher to the recovery room.
[2018-03-02] MEDS ORDERED: Ondansetron HCl/PF 4 MG/2 ML Vial ONE (14:31)
[2018-03-02] MEDS ORDERED: ePHEDrine/0.9% NaCl/PF SYRINGE 50 mg/10 ml ONE (14:31)
[2018-03-02] MEDS ORDERED: PROPOFOL 200 MG/20 ML VIAL ONE (14:31)
[2018-03-02] MEDS ORDERED: Lidocaine 1% PF 5 ML VIAL ONE (14:31)
== END 2018-03-02 11:35 | disposition home or self-care (01) ==
LOC: SDC 05:54
PROVIDERS: ATTEND Urology
PROC: BT141ZZ Fluoroscopy of Kidneys, Ureters and Bladder using Low Osmolar Contrast (ICD-10-PCS; principal; 2018-03-02)
DX: N39.0 Urinary tract infection, site not specified (principal); N81.10 Cystocele, unspecified; K80.20 Calculus of gallbladder without cholecystitis without obstruction; I10 Essential (primary) hypertension; I25.10 Atherosclerotic heart disease of native coronary artery without angina pectoris; Z87.440 Personal history of urinary (tract) infections; Z79.2 Long term (current) use of antibiotics; Z79.82 Long term (current) use of aspirin; Z79.899 Other long term (current) drug therapy; Z88.8 Allergy status to other drugs, medicaments and biological substances; Z95.5 Presence of coronary angioplasty implant and graft; Z96.643 Presence of artificial hip joint, bilateral
CPT/HCPCS: 74420; J1956; J2001; J2405; J2704; J3010

== ENCOUNTER → 2018-04-18 | Day surgery (SDC) | payer MEDICARE ==
[~2018-04-18] MED LIST: Heparin 1,000 UNITS/ML VIAL ONE
--- NOTE | 2018-04-18 17:12 | SPC ---
SONOGRAPHIC GUIDED LEFT UPPER EXTREMITY PICC PLACEMENT: 04/18/18 HISTORY: UTI. FINDINGS: After explaining the procedure and answering all questions, the left upper extremity was prepped and draped in the usual sterile fashion. Sterile technique, buffered local anesthesia, sonographic guidan ce, and a 22 gauge needle were used to carefully access the left brachial vein. Earlier attempts to a ccess the basilic vein were unsuccessful. Standard technique was then used to place a tip of a 5 [place] single lumen PICC so that the tip lies at the level of the cavoatrial junction. Catheter was flushed and secured externally. Patient tolerat ed the procedure well and was dismissed in good condition. FLUORO TIME: 0.5 minutes. IMPRESSION: Left upper extremity PICC is ready for use. POS: [facility]
== END ==
LOC: SPEC 09:29
PROVIDERS: ATTEND Internal Medicine Infectious Disease
PROC: 02HV33Z Insertion of Infusion Device into Superior Vena Cava, Percutaneous Approach (ICD-10-PCS; principal; 2018-04-18)
DX: N39.0 Urinary tract infection, site not specified (principal); Z79.2 Long term (current) use of antibiotics; Z79.82 Long term (current) use of aspirin; Z79.899 Other long term (current) drug therapy; Z88.8 Allergy status to other drugs, medicaments and biological substances
CPT/HCPCS: 36569; C1751; J1644

== ENCOUNTER 2018-05-21 08:18 | Outpatient (CLI) | payer MEDICARE ==
--- NOTE | 2018-05-21 10:19 | ULT ---
TRANSABDOMINAL PELVIC ULTRASOUND: INDICATION: An 88-year-old female with a history of pelvic pain. TECHNIQUE: Guevara scale and color Doppler images were submitted from a transabdominal pelvic ultrasound. FINDINGS: The uterus measured 6.2 x 3.6 x 2.4 cm. The endometrial stripe was trace and difficult to measure in the small uterus. It measured approximately 1.2 mm on my measurements. The ovaries were not seen. No free fluid is evident. No lymphadenopathy is grossly evident. IMPRESSION: Nonvisualization of the ovaries. Small uterus appropriate for age. POS: [facility]
--- NOTE | 2018-05-21 10:23 | ULT ---
TRANSABDOMINAL ULTRASOUND OF THE BLADDER: INDICATION: History of postvoid residual. FINDINGS: The prevoid bladder volume was 132 cc. The postvoid bladder volume was 53.6 cc. IMPRESSION: Pre- and postvoid bladder volume as above. POS: [facility]
== END 2018-05-21 08:19 | disposition home or self-care (01) ==
LOC: BICULT 08:18
PROVIDERS: ATTEND Internal Medicine Infectious Disease
DX: N30.90 Cystitis, unspecified without hematuria (principal); R10.2 Pelvic and perineal pain
CPT/HCPCS: 76856; 76857

== ENCOUNTER 2018-08-15 17:17 | Emergency (ER) | payer MEDICARE ==
[2018-08-15 18:09] LABS: Bilirubin Negative (Negative); Blood, Urine Large (Negative); Clarity TURBID (Clear); Glucose, Urine (Dipstick) Negative (Negative); Leukocyte Large (Negative); Nitrite Negative (Negative); Protein, Urine (Dipstick) 100 mg/dL (Neg-Trace); Specific Gravity, Urine 1.017 (1.002-1.036); Urobilinogen 0.2 mg/dL (0.2-1.0)
[2018-08-15 18:13] LABS: Bacteria/HPF None Seen HPF (None Seen); Hyaline Casts/LPF 0-3 HYALINE CAST LPF (0-3 Hyaline); Pathc Cast-AUWi Flag 0.16 (0-2.49); RBC/HPF GREATER THAN 50-TNTC HPF (0-3); Squamous Epithelial None Seen HPF (0-3)
== END 2018-08-15 19:22 | disposition home or self-care (01) ==
LOC: ERS 17:17
DX: N39.0 Urinary tract infection, site not specified (principal); I48.91 Unspecified atrial fibrillation; I10 Essential (primary) hypertension; Z79.82 Long term (current) use of aspirin; Z79.899 Other long term (current) drug therapy
CPT/HCPCS: 81003; 81015; 87086; 99283

== ENCOUNTER 2018-11-06 06:01 | Emergency (ER) | payer MEDICARE ==
[2018-11-06] MEDS ORDERED: Meclizine HCl 25 MG TAB ONE (06:13)
[2018-11-06 06:40] LABS: #Eosinphils 0.2 thou/uL (0.0-0.7); #Monocytes 0.3 thou/uL (0.11-0.59); #Neutrophils 2.8 thou/uL (1.40-6.50); %Basophils 0.5 % (0.0-1.0); %Eosinophils 4.9 % (0.0-10.0); %Lymphocytes 22.1 % (21.0-51.0); %Monocytes 7.5 % (0.0-10.0); Hemoglobin 10.4 g/dL (12.0-16.0); Mean Corpuscular Hemoglobin 29.7 pg (27.0-31.0); Mean Corpuscular Volume 87.3 fL (78.0-98.0); Mean Platelet Volume 8.2 fL (7.4-10.4); Platelet Count 38 thou/uL (130-400); RBC Distribution Width 12.1 % (11.5-14.5); Red Blood Cell (RBC) Count 3.52 mill/uL (4.20-5.40); White Blood Cell (WBC) Count 4.3 thou/uL (4.8-10.8)
[2018-11-06 07:02] LABS: ALT (SGPT) 14 U/L (8-55); AST (SGOT) 16 U/L (5-34); Albumin 4.2 g/dL (3.4-4.8); Alkaline Phosphatase 50 U/L (40-150); Anion Gap 13 mmol/L (10-20); BUN (Urea Nitrogen) 32 mg/dL (9.8-20.1); Bilirubin, Total 0.9 mg/dL (0.2-1.2); Calc. Creatinine Clearance 0 mL/min (70-130); Calcium 9.2 mg/dL (7.8-10.44); Carbon Dioxide 22 mmol/L (23-31); Chloride 109 mmol/L (98-107); Estimated GFR-MDRD 36; Globulin 2.6 g/dL (2.4-3.5); Glucose 102 mg/dL (83-110); Potassium 4.5 mmol/L (3.5-5.1); Protein, Total 6.8 g/dL (6.0-8.3); Sodium 139 mmol/L (136-145)
[2018-11-06 07:09] LABS: Bilirubin Negative (Negative); Blood, Urine Large (Negative); Clarity TURBID (Clear); Glucose, Urine (Dipstick) Negative (Negative); Leukocyte Large (Negative); Nitrite Negative (Negative); Protein, Urine (Dipstick) 100 mg/dL (Neg-Trace); Specific Gravity, Urine 1.013 (1.002-1.036); Urobilinogen 0.2 mg/dL (0.2-1.0)
[2018-11-06 07:11] LABS: Bacteria/HPF None Seen HPF (None Seen); Squamous Epithelial None Seen HPF (0-3)
[2018-11-06 07:22] LABS: Pathc Cast-AUWi Flag 5.19 (0-2.49); Yeast-AUWi Flag 65.9 (0-25.0)
[2018-11-06 07:24] LABS: Hyaline Casts/LPF 0-3 HYALINE CAST LPF (0-3 Hyaline); RBC/HPF 21-50 HPF (0-3); Yeast-All Forms None Seen HPF (None Seen)
[2018-11-06 07:25] LABS: Manual Microscopic Reviewed? No Path Casts Seen
[2018-11-06 07:32] LABS: UA Pathologist Review? Questionable Materia
--- NOTE | 2018-11-06 07:36 | CT ---
CT BRAIN WITHOUT CONTRAST: Date: 11/06/18 COMPARISON: None. HISTORY: Dizziness. TECHNIQUE: Multiple contiguous axial images were obtained in a CT of the brain without contrast. FINDINGS: There are a few scattered hypodensities in the subcortical and periventricular white matter, likely s econdary to small vessel ischemic disease. No large confluent infarction is seen. There is no evidenc e of hydrocephalus, intracranial hemorrhage, or extra-axial fluid collection. The calvarium and overlying soft tissues are unremarkable. The visualized paranasal sinuses and masto id air cells are well aerated. IMPRESSION: No evidence of acute intracranial abnormality. POS: [facility]
--- NOTE | 2018-11-09 12:08 | EKG ---
Test Reason : Blood Pressure : / mmHG Vent. Rate : 053 BPM Atrial Rate : 053 BPM P-R Int : 000 ms QRS Dur : 078 ms QT Int : 452 ms P-R-T Axes : 000 -04 054 degrees QTc Int : 424 ms Sinus bradycardia Otherwise normal EKG Confirmed by VIVIANA CISNEROS DO ([id number]), online content editor ANNA VILLA ([id number]) on 11/09/2018 12:08:42 PM Referred By: Confirmed By:VIVIANA CISNEROS DO
== END 2018-11-06 08:38 | disposition home or self-care (01) ==
LOC: ERS 06:01
DX: R42 Dizziness and giddiness (principal); N39.0 Urinary tract infection, site not specified; H73.892 Other specified disorders of tympanic membrane, left ear; I48.91 Unspecified atrial fibrillation; I10 Essential (primary) hypertension; Z79.82 Long term (current) use of aspirin; Z79.899 Other long term (current) drug therapy
CPT/HCPCS: 36415; 51701; 70450; 80053; 80500; 81003; 81015; 83880; 84484; 85025; 93005; A4353; J8597

== ENCOUNTER 2019-03-11 05:54 | Emergency (ER) | payer MEDICARE ==
[2019-03-11 06:39] LABS: #Eosinphils 0.2 thou/uL (0.0-0.7); #Lymphocytes 1.3 thou/uL (1.20-3.40); #Monocytes 0.3 thou/uL (0.11-0.59); #Neutrophils 2.3 thou/uL (1.40-6.50); %Basophils 0.4 % (0.0-1.0); %Eosinophils 5.1 % (0.0-10.0); %Lymphocytes 31.9 % (21.0-51.0); %Monocytes 7.8 % (0.0-10.0); %Neutrophils 54.9 % (42.0-75.0); Hemoglobin 10.4 g/dL (12.0-16.0); Mean Corpuscular HGB CONC 34.8 g/dL (32.0-36.0); Mean Corpuscular Hemoglobin 30.2 pg (27.0-31.0); Mean Corpuscular Volume 86.6 fL (78.0-98.0); Mean Platelet Volume 8.1 fL (7.4-10.4); Platelet Count 57 thou/uL (130-400); RBC Distribution Width 12.6 % (11.5-14.5); Red Blood Cell (RBC) Count 3.45 mill/uL (4.20-5.40); White Blood Cell (WBC) Count 4.2 thou/uL (4.8-10.8)
[2019-03-11 06:55] LABS: ALT (SGPT) 17 U/L (8-55); AST (SGOT) 19 U/L (5-34); Albumin 4.4 g/dL (3.4-4.8); Alkaline Phosphatase 51 U/L (40-110); Anion Gap 13 mmol/L (10-20); BUN (Urea Nitrogen) 38 mg/dL (9.8-20.1); Calc. Creatinine Clearance 0 mL/min (70-130); Calcium 9.7 mg/dL (7.8-10.44); Carbon Dioxide 19 mmol/L (23-31); Chloride 110 mmol/L (98-107); Estimated GFR-MDRD 21; Glucose 103 mg/dL (83-110); Potassium 4.4 mmol/L (3.5-5.1); Protein, Total 7.4 g/dL (6.0-8.3); Sodium 138 mmol/L (136-145)
== END 2019-03-11 12:24 | disposition home or self-care (01) ==
LOC: ERS 05:54
DX: R31.9 Hematuria, unspecified (principal); R33.9 Retention of urine, unspecified; I49.9 Cardiac arrhythmia, unspecified; I48.91 Unspecified atrial fibrillation; I10 Essential (primary) hypertension; Z79.899 Other long term (current) drug therapy; Z79.82 Long term (current) use of aspirin; Z79.51 Long term (current) use of inhaled steroids
CPT/HCPCS: 51702; 80053; 85025; 96360; 96361